=== PATIENT | male | born 1940 | race Caucasian/White ===

== ENCOUNTER 2018-05-17 07:22 | Outpatient (CLI) | payer OTHER ==
[~2018-05-17 07:22] MED LIST: CEFADROXIL500 MG PO; NORVASC5 MG PO; PERCOCET 5/321 UDTAB PO; XARELTO10 MG PO
== END 2018-05-17 07:24 | disposition home or self-care (01) ==
LOC: SONOGRAMA 07:22
DX: E04.2 Nontoxic multinodular goiter (principal)

== ENCOUNTER 2018-11-15 07:14 | Outpatient (CLI) | payer OTHER | END 2018-11-15 07:17 | disposition home or self-care (01) | LOC: SONOGRAMA 07:14 | DX: E04.1 Nontoxic single thyroid nodule (principal) ==